=== PATIENT | female | born 1970 ===

== ENCOUNTER 2021-12-03 14:21 | Outpatient (CLI) | payer OTHER | END 2021-12-03 14:23 | disposition home or self-care (01) | LOC: SONOGRAMA 14:21 | PROVIDERS: ATTEND Pathology Anatomic Pathology & Clinical Pathology | DX: E04.1 Nontoxic single thyroid nodule (principal); D34 Benign neoplasm of thyroid gland; E06.5 Other chronic thyroiditis; E04.9 Nontoxic goiter, unspecified ==